=== PATIENT | male | born 2000 | race Caucasian/White ===

== ENCOUNTER 2022-08-26 17:12 | Emergency (ER) | payer OTHER, SELFPAY ==
[2022-08-26 17:34] VITALS: BP 131/80; PULSE 68; RESP 18; TEMP 37.1; O2SAT 98; BMI 25.1
--- NOTE | 2022-08-26 18:55 | CRLHL7_ITS ---
For Patients: As a result of the Century Cures Act, medical imaging exams and procedure reports are released immediately into your electronic medical record. You may view this report before your referring provider. If you have questions, please contact your health care provider. INDICATION: Head injury. TECHNIQUE: CT head without contrast. COMPARISON: None. FINDINGS: CSF spaces: Within normal limits for age. Brain parenchyma and extra-axial spaces: The carranza-white differentiation is normal. No sign of mass, hemorrhage, or midline shift. No extra-axial fluid collection. Skull base and calvarium: The visualized paranasal sinuses and mastoid air cells demonstrate no acute or significant findings. The visualized orbits are grossly unremarkable. No skull fractures. 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 IMPRESSION: No evidence of an acute intracranial abnormality. No skull fracture. 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 Recommend correlation for the Tullio phenomenon. Please note that all CT scans at this facility use dose modulation, iterative reconstruction, and/or weight-based dosing when appropriate to reduce radiation dose to as low as reasonably achievable. Dictated by Sunil Bowen MD @ 08/26/2022 8:51:37 PM (Electronically Signed)
--- NOTE | 2022-08-26 19:40 | ED_ITS ---
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 He does not really remember what happened was getting up to get a drink of water and he hit fell and hit his head he subsequently has been told at the [facility] that he had a concussion on Wednesday, today felt a little bit worse with a little bit a nausea some ringing in his head some fogginess of thought. He does not have any focal neurologic weakness by his report to me does not describe any neck pain any back pain any neurologic complaints other than his brain fog in his thinking isn't quite as clear he has had a. He has had a little bit of ringing in his ears. Related Data Allergies Allergy/AdvReac Type Severity Reaction Status Date / Time No Known Drug Allergies Allergy Verified 08/26/22 17:34 Review of Systems Status of ROS: Reports: 6 or more systems reviewed and unremarkable except as noted in History and below PFSH PFS Social History Smoking Status: Never smoker Do you use any of these nicotine containing products: None Second hand tobacco smoke exposure: No How often do you have a drink containing alcohol: 2-4 times a month How many standard drinks containing alcohol do you have on a typical day: 1 or 2 How often do you have six or more drinks on one occasion: Never AUDIT-C Alcohol total score: 2 Non-prescribed substance use: denies use service: No Exam Narrative: Exam Narrative: Objective: Vital signs unremarkable In general Александр no apparent distress HEENT is unremarkable pupils react to light extra moves intact no facial asymmetry Neck is supple nontender neurologic is nonfocal upper extremities chest back abdomen unremarkable Const: Vital Signs, click to edit/add: Vital Signs - 24 hr 08/26/22 17:34 08/26/22 19:41 Temperature 98.7 F Pulse Rate [Pulse Oximeter] 68 66 Respiratory Rate 18 16 Blood Pressure [Ri ght Upper Arm] 131/80 131/77 Pulse Oximetry 98 98 Oxygen Delivery Me thod Room Air Room Air Course Vital Signs Vital signs: Initial Vital Signs Temperature 98.7 F 08/26/22 17:34 Temperature Source Temporal Artery Scan 08/26/22 17:34 Pulse Rate 68 08/26/22 17:34 Pulse Rhythm 08/26/22 17:34 Respiratory Rate 18 08/26/22 17:34 Blood Pressure 131/80 08/26/22 17:34 Blood Pressure Mean 97 08/26/22 17:34 Blood Pressure Position Sitting 08/26/22 17:34 Pulse Oximetry 98 08/26/22 17:34 Oxygen Delivery Method 08/26/22 17:34 Vital Signs Temperature 98.7 F 08/26/22 17:34 Pulse Rate 68 08/26/22 17:34 Respiratory Rate 18 08/26/22 17:34 Blood Pressure 131/80 08/26/22 17:34 Pulse Oximetry 98 08/26/22 17:34 Oxygen Delivery Method 08/26/22 17:34 Temperature 98.7 F 08/26/22 17:34 Pulse Rate 66 08/26/22 19:41 Respiratory Rate 16 08/26/22 19:41 Blood Pressure 131/77 08/26/22 19:41 Pulse Oximetry 98 08/26/22 19:41 Oxygen Delivery Method 08/26/22 19:41 Medical Decision Making MDM Narrative Medical decision making narrative: Patient is a 22 year white male who hit his head a few days ago, and has some post concussive syndrome symptoms. He has a reassuring neck examination and back examination focal neurologic findings are absent. He does have some fogginess of thought, some mild ringing in the ears. This be consistent with a post concussive syndrome. I think we should CT is had to make sure there is no abnormality or contusion or bleeding. Wayne was comfortable that plan as well. And if this is negative would recommend light activity, resting recheck with primary care in 48 hours Tylenol as needed for discomfort. Addendum: The patient has CT scan that shows no evidence of acute acute abnormality or skull fracture. The patient does have evidence of from right superior semicircular canal dehiscence and there is soft process call to Yaya phenomenon that can be associated with this. The patient also describes some other type of phenomena he has where he moves his jaw and his eye blinks. I would recommend a consult with ENT at some point they will do so. Recommend light activity as mention no contact sports no exercise, avoid re-injury at all cost, Tylenol as needed, seafood regular physician in a week return to ED as needed. Discharge Plan Discharge Clinical Impression: Closed head injury, Post concussion syndrome Patient Disposition: Home w/ Parent or Adult Condition: Stable Additional Instructions: Light activity, no contact sports, no exercise, recheck with regular doctor in a week, avoid repeat head injury. May take Tylenol as needed. Because of the finding on CT would recommend ENT consult at their convenience. Would recommend recheck with regular doctor in a week. Activity Level: Light activity Discharge Diet: Regular Stand Alone Forms: [employer] Info Instructions
[2022-08-26 19:41] VITALS: BP 131/77; PULSE 66; RESP 16; O2SAT 98
[2022-08-26 21:12] VITALS: BP 117/84; PULSE 97; RESP 16
== END 2022-08-26 21:13 | disposition home or self-care (01) ==
PROVIDERS: Emergency Provider Family Medicine
DX: S09.90XS Unspecified injury of head, sequela (principal); F07.81 Postconcussional syndrome; W22.09XS Striking against other stationary object, sequela
CPT/HCPCS: 70450; 99284